=== PATIENT | female | born 1955 | race Hispanic/Latino ===

== ENCOUNTER 2017-07-09 17:56 | Emergency (ER) | payer BC ==
--- NOTE | 2017-07-09 19:32 | CT ---
NONCONTRAST CT FACIAL BONES: 07/09/17 HISTORY: Trauma. Patient fell and hit nose. FINDINGS: There is no evidence of a fracture. The orbits are symmetric and normal in appearance bilaterally. Degenerative changes are seen in the visualized upper cervical spine. There is a prominent lizzy bullosa within the right middle nasal turbinate. The paranasal sinuses ar e clear. Temporomandibular joints are normally located. IMPRESSION: No acute fracture seen involving the facial bones. There is mild subcutaneous soft tissue swelling se en adjacent to the right aspect of the nasal bone, but no underlying fracture is appreciated. POS: [facility]
--- NOTE | 2017-07-09 19:59 | RAD ---
FOUR VIEWS RIGHT KNEE 07/09/17 HISTORY: Trauma. Patient fell at work and hit knees on a bin she was carrying. COMPARISON: 03/21/13. FINDINGS: There is no evidence of a fracture, dislocation, or other osseous abnormality involving the right kne e. There has been no interval change from prior study. IMPRESSION: No acute osseous abnormality right knee. POS: [facility]
== END 2017-07-09 19:52 | disposition home or self-care (01) ==
LOC: ERS 17:56
DX: S00.33XA Contusion of nose, initial encounter (principal); M25.561 Pain in right knee; F41.9 Anxiety disorder, unspecified; Z79.899 Other long term (current) drug therapy; W19.XXXA Unspecified fall, initial encounter
CPT/HCPCS: 70486

== ENCOUNTER 2017-08-13 15:17 | Outpatient (CLI) | payer BC | END 2017-08-13 15:18 | disposition home or self-care (01) | LOC: BICCT 15:17 | PROVIDERS: ATTEND Family Medicine | DX: R51 Headache (principal); G89.29 Other chronic pain; Z87.828 Personal history of other (healed) physical injury and trauma ==

== ENCOUNTER 2019-03-27 13:01 | Outpatient (CLI) | payer BC ==
--- NOTE | 2019-03-27 15:02 | MMO ---
Bilateral MAMMO Bilat Screen [facility]. CLINICAL HISTORY: Patient is 63 years old and is seen for screening. The patient has no family history of breast cancer. The patient has no personal history of cancer. The patient has a history of left Excisional Biopsy in April, - benign. VIEWS: The views performed were: bilateral craniocaudal with tomosynthesis and bilateral mediolateral oblique with tomosynthesis. FILMS COMPARED: The present examination has been compared to prior imaging studies performed at [facility] on 01/29/2010, 02/05/2011, 02/11/2011 and 01/20/2016. This study has been interpreted with the assistance of computer-aided detection. MAMMOGRAM FINDINGS: There are scattered fibroglandular densities. There are no suspicious masses, suspicious calcifications, or new areas of architectural distortion. IMPRESSION: THERE IS NO MAMMOGRAPHIC EVIDENCE OF MALIGNANCY. A ROUTINE FOLLOW-UP MAMMOGRAM IN 1 YEAR IS RECOMMENDED. THE RESULTS OF THIS EXAM WERE SENT TO THE PATIENT. ACR BI-RADS Category 1 - Negative MAMMOGRAPHY NOTE: 1. A negative mammogram report should not delay a biopsy if a dominant of clinically suspicious mass is present. 2. Approximately 10% to 15% of breast cancers are not detected by mammography. 3. Adenosis and dense breasts may obscure an underlying neoplasm. Reported by: ASHANTI BOOTH MD Electonically Signed: [id number]
== END 2019-03-27 13:02 | disposition home or self-care (01) ==
LOC: BICMAMMO 13:01
PROVIDERS: ATTEND Family Medicine
DX: Z12.31 Encounter for screening mammogram for malignant neoplasm of breast (principal)
CPT/HCPCS: 77063; 77067

== ENCOUNTER 2021-01-14 13:24 | Outpatient (CLI) | payer BC | END 2021-01-14 13:25 | disposition home or self-care (01) | LOC: BICULT 13:24 | PROVIDERS: ATTEND Physician Assistant | DX: R10.2 Pelvic and perineal pain (principal) | CPT/HCPCS: 76856 ==

== ENCOUNTER → 2021-01-27 | Day surgery (SDC) | payer BC ==
[~2021-01-27] MED LIST: Iopamidol 370 76% 100 ML VIAL ONE
[2021-01-27 08:43] LABS: Estimated GFR-MDRD - POC Greater than 90
== END ==
LOC: CT 08:07 → RAD 08:08
PROVIDERS: ATTEND Family Medicine
DX: K76.0 Fatty (change of) liver, not elsewhere classified (principal); R10.31 Right lower quadrant pain
CPT/HCPCS: 74177; 82565; Q9967

== ENCOUNTER 2022-01-30 15:04 | Outpatient (CLI) | payer BC | END 2022-01-30 15:05 | disposition home or self-care (01) | LOC: CTENTCT 15:04 | PROVIDERS: ATTEND Student in an Organized Health Care Education/Training Program | DX: J34.2 Deviated nasal septum (principal) | CPT/HCPCS: 70486 ==

== ENCOUNTER 2022-02-23 13:55 | Outpatient (CLI) | payer MEDICARE, BC | END 2022-02-23 13:56 | disposition home or self-care (01) | LOC: BICMAMMO 13:55 | PROVIDERS: ATTEND Family Medicine | DX: Z12.31 Encounter for screening mammogram for malignant neoplasm of breast (principal); Z80.3 Family history of malignant neoplasm of breast; Z91.89 Other specified personal risk factors, not elsewhere classified | CPT/HCPCS: 77063; 77067 ==

== ENCOUNTER 2022-10-15 13:26 | Outpatient (CLI) | payer MEDICARE, BC | END 2022-10-15 13:27 | disposition home or self-care (01) | LOC: RAD 13:26 | PROVIDERS: ATTEND Family Medicine | DX: M54.41 Lumbago with sciatica, right side (principal); M47.816 Spondylosis without myelopathy or radiculopathy, lumbar region | CPT/HCPCS: 72100 ==

== ENCOUNTER 2024-02-16 14:37 | Outpatient (CLI) | payer MEDICARE, BC | END 2024-02-16 14:38 | disposition home or self-care (01) | LOC: BICRAD 14:37 | PROVIDERS: ATTEND Family Medicine | DX: M54.2 Cervicalgia (principal); M47.812 Spondylosis without myelopathy or radiculopathy, cervical region | CPT/HCPCS: 72040 ==

== ENCOUNTER 2024-04-06 13:47 | Outpatient (CLI) | payer MEDICARE, BC | END 2024-04-06 13:48 | disposition home or self-care (01) | LOC: BICMAMMO 13:47 | PROVIDERS: ATTEND Family Medicine | DX: Z12.31 Encounter for screening mammogram for malignant neoplasm of breast (principal); M85.851 Other specified disorders of bone density and structure, right thigh; Z78.0 Asymptomatic menopausal state; Z80.3 Family history of malignant neoplasm of breast; Z91.89 Other specified personal risk factors, not elsewhere classified | CPT/HCPCS: 77063; 77067; 77080 ==